=== PATIENT | female | born 1940 | race Two or more races ===

== ENCOUNTER 2020-07-22 06:04 | Day surgery (SDC) | payer MEDICARE ==
[~2020-07-22] VITALS: Ht 154.9 cm; Wt 54.4 kg
[~2020-07-22 06:04] MED LIST: ASCO500 PO; ASPI81CH PO; CALC.25 PO; CLEM1.34 PO; ESCI20 PO; ESTMED1.5T; HYDACE5 PO; LEVSOD125; LEVSOD75 PO; METCAR500 PO; OMEP20ER PO; OXYACE5T PO; POTASSIUM PO; SERT100; SERT100 PO; SIMV40 PO; TUMS500 MG PO; VIT1CAPS12 PO
--- NOTE | 2020-07-22 07:07 | NUR ---
History, Chart, Medications and Allergies reviewed before start of procedure.Patient confirms NPO status and agrees with scheduled surgery. Patient reports completing Chlorhexadine shower X2 prior to admission to hospital.Surgical site prepped with 2% Chlorhexidine cloth wipe.TOP DENTURES WILL BE REMOVED AND TAKEN TO PACU
--- NOTE | 2020-07-22 10:34 | NUR ---
PT ARRIVED TO UNIT AT APROX 1020 FROM PACU. AQUACEL DRESSING TO L KNEE C/D/I, CONOR HOSE/POLAR PACK/SCDS IN PLACE. PT ABLE TO WIGGLE TOES/LIFT LEG REPORTING FULL SENSATION TO BLE, DENIES PAIN. PT PLACED ON 2L O2 TO MAINTAIN O2 SAT GREATER THAN 90%, WILL TITRATE TOLERATED.
--- NOTE | 2020-07-22 11:10 | NUR ---
THIS RN ASSUMING CARE OF PT. PT A/O, AWAKE. REPORTS WISHING TO TAKE NAP. PT REPORTS UNDERSTANDING OF CALL LIGHT. ASSESSMENT COMPLETED. PT REPORTS NOT HURTING AT THIS TIME. PT WIGGLES TOES. DRESSING C/D/I.
--- NOTE | 2020-07-22 12:49 | NUR ---
PT REPORTS USUALLY DOESN'T EAT MUCH LUNCH NORMALLY. REPORTS WILL DRINK WATER.
--- NOTE | 2020-07-22 13:22 | NUR ---
PT SLEEPING, RESP E/U.
--- NOTE | 2020-07-22 14:47 | NUR ---
THERAPY IN ROOM. FAMILY IN ROOM.
--- NOTE | 2020-07-22 19:38 | NUR ---
SHIFT SUMMARY PT DRINKING, REPORTS DOESN'T FEEL LIKE EATING MUCH BUT DOES EAT SMALL AMT. PT VOIDING. PT HAD PROCEDURE TODAY. PT BEEN PLEASANT AND COOPERATIVE. PAS/TEDS/POLAR PAC IN PLACE.
[2020-07-23 05:06] LABS: BASOPHILS ABSOLUTE AUTO 0.02 K/mm3 (0.00-0.23); BASOPHILS PERCENT AUTO 0 % (0-2); EOSINOPHILS ABSOLUTE AUTO 0.01 K/mm3 (0.00-0.68); EOSINOPHILS PERCENT AUTO 0 % (0-6); Hematocrit 33.7 % (33.0-51.0); Hemoglobin 10.9 g/dL (11.5-16.0); IMMATURE GRAN ABSOLUTE AUTO 0.04 K/mm3 (0.00-0.10); IMMATURE GRAN PERCENT AUTO 0 % (0-1); LYMPHOCYTES ABSOLUTE AUTO 0.56 K/mm3 (0.84-5.20); LYMPHOCYTES PERCENT AUTO 6 % (21-46); MONOCYTES PERCENT AUTO 10 % (4-13); Mean Corpuscular HGB 29.3 pg (26.0-34.0); Mean Corpuscular HGB Conc 32.3 g/dL (31.5-36.5); Mean Corpuscular Volume 91 fL (80-100); Mean Platelet Volume 10.6 fL (9.1-12.4); NEUTROPHILS ABSOLUTE AUTO 8.64 K/mm3 (1.96-9.15); NEUTROPHILS PERCENT AUTO 84 % (41-73); Platelet Count 150 K/mm3 (150-400); RDW Coefficient Variation 11.9 % (11.7-14.2); Red Blood Cell Count 3.72 M/mm3 (3.80-5.20); White Blood Cell Count 10.27 K/mm3 (4.00-11.30)
[2020-07-23 05:23] LABS: Calcium, Blood 8.9 mg/dL (8.5-10.1); Creatinine, Blood 1.13 mg/dL (0.40-1.00); Magnesium, Blood 2.1 mg/dL (1.6-2.4); Potassium, Blood 4.4 mmol/L (3.5-5.5)
--- NOTE | 2020-07-23 06:00 | NUR ---
SHIFT SUMMARY L TKA POD1, A/O X4, VSS, TOLERATING PO, VOIDING WELL, PASSING FLATUS, AMBULATING W/ FWW/GB, PAIN WELL CONTROLLED PER EMAR. CALL LIGHT IN REACH, WILL CONTINUE TO MONITOR AND REPORT TO ONCOMING DAY RN.
--- NOTE | 2020-07-23 08:10 | NUR ---
BRIANA RECENTLY HERE TO SEE PT, DISCUSSED PT'S STATUS.
[2020-07-23] MEDS ORDERED: ACETAMINOPHEN500 M2 PO (09:10)
[2020-07-23] MEDS ORDERED: ROXICODONE5 MG PO (09:11)
--- NOTE | 2020-07-23 09:31 | NUR ---
PT RECENTLY WORKED WITH THERAPY. PT CLEARED THERAPY, FAMILY HAD TO STEP OUT AT THIS TIME.
--- NOTE | 2020-07-23 10:28 | NUR ---
DISCHARGE: PT EATING AND DRINKING, VOIDING, PASSING GAS. PT REPORTS PAIN TOLERABLE ON PO PAIN MEDICATION. PT CLEARED THERAPY TO GO HOME. PT/FAMILY REPORTS UNDERSTANDING OF DISCHARGE INSTRUCTIONS INCLUDING MEDICATION, ICE MACHINE, CONOR HOSE. PT SENT WITH DRESSING SUPPLIES, CONOR HOSE, ICE MACHINE, BELONGINGS AND PAPERWORK INCLUDING SCRIPT.
--- NOTE | 2020-07-23 16:45 | NUR ---
07/23/20 1645 Summer Cook VERIFICATIONS: EDIT CHART.
== END 2020-07-23 10:44 | disposition home or self-care (01) ==
LOC: ORSCMMR 06:04 → ORD 07:30 → SURS 10:26 → ORSCMMR 10:26 → SURS 07-23 10:44 → ORSCMMR 07-23 10:44
PROVIDERS: Orthopaedic Surgery
PROC: 0SRD06A Replacement of Left Knee Joint with Oxidized Zirconium on Polyethylene Synthetic Substitute, Uncemented, Open Approach (ICD-10-PCS; principal; 2020-07-22 07:30)
PROC: 8E0YXBZ Computer Assisted Procedure of Lower Extremity (ICD-10-PCS; principal; 2020-07-22 07:30)
DX: M17.12 Unilateral primary osteoarthritis, left knee (principal); E07.9 Disorder of thyroid, unspecified; Z79.82 Long term (current) use of aspirin; Z79.899 Other long term (current) drug therapy
CPT/HCPCS: 36415; 73560-LT; 80048; 83735; 85025; 88300; 97110; 97116; 97162; A9270; A9270-GY; C1776; J0171; J0690; J0735; J1100; J1885; J2250; J2370; J2405; J2704; J2795; J3010; J7120

== ENCOUNTER → 2022-03-17 | Outpatient (CLI) | payer MEDICARE ==
[~2022-03-17] MED LIST changes: +ACETAMINOPHEN500 M2 PO; +ROXICODONE5 MG PO
[2022-03-17 13:36] LABS: Source, Urine Clean Catch
[2022-03-17 18:00] LABS: Appearance, Urine Clear (Clear); Bilirubin, Urine Neg (Neg); Blood, Urine 1+ (Neg); Color, Urine Yellow (P-Yellow); Glucose Qualitative, Urine Neg (Neg); Ketones, Urine Neg (Neg); Leukocyte Esterase, Urine Neg (Neg); Nitrite, Urine Neg (Neg); Protein, Urine Neg (Neg); Specific Gravity, Urine 1.015 (1.003-1.022); Urobilinogen, Urine NORM (Normal)
[2022-03-17 18:27] LABS: White Blood Cells, Urine 0-2 /hpf (0-5)
[2022-03-17 18:28] LABS: Squamous Epithelial Cells Few /hpf (Few)
[2022-03-17 18:43] LABS: Bacteria Rare /hpf
== END | disposition home or self-care (01) ==
LOC: LAB 13:35 → LAB SHORT 13:35
PROVIDERS: Nurse Practitioner Family
DX: E78.2 Mixed hyperlipidemia (principal); N18.30 Chronic kidney disease, stage 3 unspecified
CPT/HCPCS: 81001

== ENCOUNTER → 2023-04-21 | Outpatient (CLI) | payer MEDICARE ==
[2023-04-21 18:54] LABS: Creatinine Urine 58.1 mg/dL (27.00-270.00); Microalbumin, Urine Quant. 7.79 mg/L (0.000-20.000); Protein, Urine Quantitative 8.4 mg/dL (0.0-11.9)
== END | disposition home or self-care (01) ==
LOC: LAB 08:00 → LAB SHORT 08:00
PROVIDERS: Internal Medicine Nephrology
DX: N18.30 Chronic kidney disease, stage 3 unspecified (principal); D63.1 Anemia in chronic kidney disease; N25.81 Secondary hyperparathyroidism of renal origin; E55.9 Vitamin D deficiency, unspecified; E78.00 Pure hypercholesterolemia, unspecified; R76.9 Abnormal immunological finding in serum, unspecified; R94.5 Abnormal results of liver function studies; R94.6 Abnormal results of thyroid function studies
CPT/HCPCS: 81050; 82043; 82570; 84156

== ENCOUNTER → 2023-06-02 | Outpatient (CLI) | payer MEDICARE | LOC: LAB SHORT 15:04 → PLD 15:04 | DX: C44.612 Basal cell carcinoma of skin of right upper limb, including shoulder (principal) | CPT/HCPCS: 88305 ==

== ENCOUNTER → 2023-06-30 | Outpatient (CLI) | payer MEDICARE | LOC: LAB 17:59 → PLD 17:59 → LAB SHORT 17:59 | DX: C44.612 Basal cell carcinoma of skin of right upper limb, including shoulder (principal) | CPT/HCPCS: 88305 ==

== ENCOUNTER 2023-09-29 13:34 | Day surgery (SDC) | payer MEDICARE ==
[~2023-09-29] VITALS: Ht 152.4 cm; Wt 54.6 kg
[2023-09-29 15:23] VITALS: BP 153/66
--- NOTE | 2023-09-29 15:45 | NUR ---
09/29/23 1545 Jhony Caal IV REMOVED INTACT. SITE WNL.
== END 2023-09-29 15:42 | disposition home or self-care (01) ==
LOC: ORSCSDS 13:34
PROVIDERS: Ophthalmology
PROC: 08RJ3JZ Replacement of Right Lens with Synthetic Substitute, Percutaneous Approach (ICD-10-PCS; principal; 2023-09-29 15:00)
DX: H25.13 Age-related nuclear cataract, bilateral (principal); H52.201 Unspecified astigmatism, right eye; K21.9 Gastro-esophageal reflux disease without esophagitis; Z79.899 Other long term (current) drug therapy
CPT/HCPCS: J2250; J3010; J3301; J7040; V2632

== ENCOUNTER 2023-10-06 13:30 | Day surgery (SDC) | payer MEDICARE ==
[~2023-10-06] VITALS: Ht 154.9 cm; Wt 55.3 kg
[2023-10-06 15:35] VITALS: BP 135/72
== END 2023-10-06 15:45 | disposition home or self-care (01) ==
LOC: ORSCSDS 13:30
PROVIDERS: Ophthalmology
PROC: 08RK3JZ Replacement of Left Lens with Synthetic Substitute, Percutaneous Approach (ICD-10-PCS; principal; 2023-10-06 15:00)
DX: H25.12 Age-related nuclear cataract, left eye (principal); Z96.1 Presence of intraocular lens; H52.202 Unspecified astigmatism, left eye; K21.9 Gastro-esophageal reflux disease without esophagitis; H40.1134 Primary open-angle glaucoma, bilateral, indeterminate stage; Z79.899 Other long term (current) drug therapy
CPT/HCPCS: J2250; J2405; J3010; J3301; J7040; V2632